=== PATIENT | female | born 1985 ===

== ENCOUNTER 2017-02-07 14:29 | Outpatient (CLI) | payer OTHER ==
[~2017-02-07] VITALS: Ht 165.1 cm; Wt 69.4 kg
== END 2017-02-07 14:40 | disposition home or self-care (01) ==
LOC: OFIC 805 14:29
DX: H61.23 Impacted cerumen, bilateral (principal); H92.03 Otalgia, bilateral; K14.6 Glossodynia; K21.9 Gastro-esophageal reflux disease without esophagitis